=== PATIENT | female | born 1990 | race Caucasian/White ===

== ENCOUNTER → 2016-05-20 | Outpatient (CLI) | payer BC ==
[~2016-05-20] MED LIST: PRENTAB26 PO
[2016-05-20 16:47] LABS: HEMATOCRIT 39.8 % (37-47); MEAN CELL VOLUME 84.3 fL (80-100); MEAN CORPUSCULAR HEMOGLOBIN 27.8 pg (25-34); MEAN CORPUSCULAR HGB CONC 32.9 g/dl (32-36); MEAN PLATELET VOLUME 9.3 fL (7.4-10.4); PLATELET COUNT 220 K/uL (130-400); RED BLOOD COUNT 4.72 M/uL (4.2-5.4); WHITE BLOOD COUNT 7.98 K/uL (4.8-10.8)
== END | disposition home or self-care (01) ==
LOC: C.LAB1850 15:32
PROVIDERS: ATTEND Obstetrics & Gynecology
DX: R53.83 Other fatigue (principal); Z01.419 Encounter for gynecological examination (general) (routine) without abnormal findings

== ENCOUNTER → 2016-05-20 | Outpatient (CLI) | payer BC | END | disposition home or self-care (01) | LOC: C.PAPS 08:11 | PROVIDERS: ATTEND Obstetrics & Gynecology | DX: Z01.419 Encounter for gynecological examination (general) (routine) without abnormal findings (principal) ==

== ENCOUNTER → 2017-02-19 | Outpatient (CLI) | payer BC ==
[2017-02-19 14:49] LABS: BASO % 0.2 %; BASO ABS # 0.02 K/uL (0-0.2); COMPLETE YES; EOS % 2.3 %; HEMATOCRIT 35.3 % (37-47); IG% 0.2 %; LYMPH % 21.1 %; LYMPH ABS # 2.34 K/uL (1.2-3.4); MEAN CELL VOLUME 84.2 fL (80-100); MEAN CORPUSCULAR HEMOGLOBIN 28.4 pg (25-34); MEAN CORPUSCULAR HGB CONC 33.7 g/dl (32-36); MEAN PLATELET VOLUME 9.9 fL (7.4-10.4); MONO % 6.1 %; NEUT % 70.1 %; PLATELET COUNT 215 K/uL (130-400); RED BLOOD COUNT 4.19 M/uL (4.2-5.4); WHITE BLOOD COUNT 11.07 K/uL (4.8-10.8)
[2017-02-19 16:43] LABS: URINE APPEARANCE CLEAR (CLEAR); URINE BILIRUBIN NEG (NEG); URINE COLOR YELLOW; URINE EPITHELIAL CELL AUTO >30 /lpf (0-5); URINE NITRITE NEG (NEG); URINE SPECIFIC GRAVITY 1.028 (1.000-1.030); UROBILINOGEN NEG (NEG)
[2017-02-19 16:44] LABS: MANUAL MICROSCOPIC REQUIRED? NO; REVIEW REQ? YES
[2017-02-22 01:49] LABS: CHLAMYDIA TRACH RNA*** NOT DETECTED (NOT DETECTED); GC (NEIS GONORRHOEAE)RNA** NOT DETECTED (NOT DETECTED)
== END | disposition home or self-care (01) ==
LOC: C.LAB1850 12:35
PROVIDERS: ATTEND Obstetrics & Gynecology
DX: Z31.81 Encounter for male factor infertility in female patient (principal)

== ENCOUNTER → 2017-03-20 | Outpatient (CLI) | payer BC | END | disposition home or self-care (01) | LOC: C.LAB1850 11:07 | PROVIDERS: ATTEND Obstetrics & Gynecology | DX: Z34.82 Encounter for supervision of other normal pregnancy, second trimester (principal) ==

== ENCOUNTER → 2017-05-19 | Outpatient (CLI) | payer BC ==
[2017-05-19 12:17] LABS: HEMATOCRIT 31.1 % (37-47); HEMOGLOBIN 10.5 g/dL (12.0-16.0)
== END | disposition home or self-care (01) ==
LOC: C.LAB1850 10:51
PROVIDERS: ATTEND Obstetrics & Gynecology
DX: Z34.83 Encounter for supervision of other normal pregnancy, third trimester (principal)

== ENCOUNTER → 2017-06-02 | Outpatient (CLI) | payer BC | END | disposition home or self-care (01) | LOC: C.LAB1850 11:13 | PROVIDERS: ATTEND Obstetrics & Gynecology | DX: Z34.83 Encounter for supervision of other normal pregnancy, third trimester (principal); Z29.13 Encounter for prophylactic Rho(D) immune globulin ==

== ENCOUNTER → 2017-07-21 | Outpatient (CLI) | payer BC | END | disposition home or self-care (01) | LOC: C.LABSPEC 12:27 | PROVIDERS: ATTEND Obstetrics & Gynecology | DX: Z34.83 Encounter for supervision of other normal pregnancy, third trimester (principal) ==

== ENCOUNTER 2023-02-01 02:23 | Inpatient (IN) ==
[2023-02-01] MEDS ORDERED: LACTATED RINGER'S 1,000 ML IV PRN (02:33)
[2023-02-01] MEDS ORDERED: PENICILLIN GK 6 MU in DEXTROSE 5% 250 ML IV STA (02:33)
[2023-02-01] MEDS ORDERED: OXYTOCIN 30 UNITS/NSS 30 UNITS/500 ML BAG IV PRN ×2 (02:33→03:07)
[2023-02-01] MEDS ORDERED: LIDOCAINE 1% LOCAL 20 ML VIAL INFIL PRN (02:33)
--- NOTE | 2023-02-01 02:58 | History & Physical Report ---
Date of Service February 01, 2023 Assessment & Plan (1) GBS (group B Streptococcus carrier), +RV culture, currently : (2) Normal labor: Plan admit for labor . anticipate rapid delivery Admission and Anticipated Discharge Date Admission Date: February 01, 2023 History of Present Illness Chief Complaint: rom and contractions Primary Care Provider: NO PCP Patient is a 32yowf with iup at 38 5/7 who comes in very uncomfortable and screaming. She called noting contractions irregularly yesterday and was able to got to bed. Woke up, went to the BR and then heard pop and clear fluid with some blood tinge. and Delivery Plans Need for rhogam due to RH neg mother -Rhogam given 11/25/2022 - SP GBS carrier- treat in labor OB Labs: Blood Type A Negative 08/09/22 Antibody Screen NEGATIVE 11/25/22 Hemoglobin 10.8 g/dl (12.0-16.0) L 11/19/22 Hematocrit 32.5 % (37.0-47.0) L 11/19/22 Mean Corpuscular Volume 81.5 fL (80.0-100.0) 08/09/22 Platelet Count 254 K/uL (130-400) 08/09/22 Rubella IgG Antibody Immune (Immune) 08/09/22 Rapid Plasma Reagin Nonreactive (Nonreactive) 08/09/22 Hepatitis B Surface Antigen NEG (NEG) 02/19/17 Hepatitis B Surface Antigen. NON-REACTIVE (NON-REACTIVE) 08/09/22 Hepatitis C Antibody (EIA) NON-REACTIVE (NON-REACTIVE) 08/09/22 HIV (1&2) Ab and P24 Ag, 4th Gener NEG (NEG) 02/19/17 HIV (1&2) Ag and Ab Confirmation NON-REACTIVE (NON-REACTIVE) 08/09/22 OB Optional Labs: Chlamydia trachomatis RNA Not Detected (NotDetected) 08/09/22 Neisseria gonorrhoeae RNA Not Detected (NotDetected) 08/09/22 Allergies Allergy/AdvReac Type Severity Reaction Status Date / Time No Known Allergies Allergy Verified 01/27/23 15:06 Home Medications Medication Instructions Recorded Confirmed Type prenat.vits,brii,lnu-atdg-jzjog 1 tab PO DAILY 07/30/22 01/27/23 History breast pump #1 ea 11/25/22 01/27/23 Rx Patient History Medical History Chicken pox Anemia Surgical History S/P wisdom tooth extraction Family History Mother Breast cancer diagnosed around 45 Denies family history of Ovarian cancer Colorectal cancer Social History Smoking Status: Never smoker Do You Dip or Chew Tobacco: No; marital status: marital status details: Alan Chavezmathewernesto (34) [phone] Current Living Situation: Spouse and Family Current Living Situation Comment: , 2 kids, one cat, one dog ( litter changing) current occupational status: unemployed 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 Date GA wks Lbr Lgth wt Sex Type del Anes Place Del Prov ? Comment 05/26/15 37 6lbs 10oz F Loc [facility] Dr. López 08/09/17 39 7lbs F Local [facility] Dr. Watts [employer] History noncontributory Physical Exam Physical Exam: writhing in bed cx--c/c/+2 toco--q1-2min efm--120s Results & Data Vital Signs (Past 12 Hours) Vital Signs Pulse BP 02/01/23 02:56 83 114/67 Coding Level of Care Code None Diagnoses GBS (group B Streptococcus carrier), +RV culture, currently O99.820 Normal labor O80; Z37.9
--- NOTE | 2023-02-01 03:02 | Delivery Summary ---
Vaginal Delivery Summary Date of Service February 01, 2023 Vaginal Delivery Summary [facility] Pre-operative Diagnosis: at 38 weeks srom with active labor Post-operative Diagnosis: same Procedure: EBL: 300cc Anesthesia: none Procedure: The patient pushed for one contraction to deliver a viable female in mary lou position. The nose and mouth were bulb suctioned on the perineum and the rest of the was then delivered without difficulty. The baby was vigorous. The nose and mouth were again bulb suctioned and the infant was placed in the maternal abdomen for drying and attention. Cord was clamped and cut at one minute of life. Cord blood and segment obtained. Placenta delivered spontaneous, intact with a three vessel cord. Cervix/sulci/rectum/perineum were intact. Hemostasis obtained with dilute pitocin and fundal massage. Apgars were 9/9. Mother and baby doing well at the end of the delivery. [facility] Vaginal Delivery Charge Delivery Type Details: [facility]
[2023-02-01] MEDS ORDERED: ACETAMINOPHEN 325 MG TAB PO PRN (03:07)
[2023-02-01] MEDS ORDERED: BENZOCAINE 20% SPRY 85 APPLN/85 GM CAN EXT PRN (03:07)
[2023-02-01] MEDS ORDERED: IBUPROFEN 600 MG TAB PO PRN (03:07)
[2023-02-01] MEDS ORDERED: DIPHTHERIA/TETANUS/PERTUSSIS Vaccine (Tdap, Age 7+yrs) 0.5mL SYR/VL IM ONE (03:07)
[2023-02-01] MEDS ORDERED: oxyCODONE/ACETAMINOPHEN 5mg/325mg TAB PO PRN (03:07)
[2023-02-01] MEDS ORDERED: bisacodyL 10 MG SUPP PR PRN (03:07)
[2023-02-01] MEDS ORDERED: HYDROCORTISONE ACETATE 25 MG SUPP PR PRN (03:07)
[2023-02-01 03:53] LABS: Hematocrit (blood only) 32.5 % (37.0-47.0); Hemoglobin 10.9 g/dl (12.0-16.0); Mean Corpuscular Hemoglobin 28.8 pg (25.0-34.0); Mean Corpuscular Hgb Conc 33.5 g/dL (32.0-36.0); Mean Corpuscular Volume 85.8 fL (80.0-100.0); Mean Platelet Volume 9.7 fL (9.4-12.4); Platelet Count 188 K/uL (130-400); RDW Coefficient of Variation 13.1 % (11.5-14.5); RDW Standard Deviation 40.5 fL (36.4-46.3); Red Blood Count 3.79 M/uL (4.20-5.40); White Blood Count 11.66 K/ul (4.8-10.8)
[2023-02-01] MEDS ORDERED: PENICILLIN GK 3 MU in DEXTROSE 5% 100 ML IV PRN (05:33)
[2023-02-01] MEDS: PRENATAL VITAMIN 1 TAB PO SCH (10:02)
[2023-02-01] MEDS: DOCUSATE SODIUM 100 MG CAP PO SCH ×2 (10:02→21:15)
--- NOTE | 2023-02-02 07:39 | Obstetrical Progress Note ---
Date of Service February 02, 2023 Assessment & Plan (1) Normal labor: ppd 2 no ext pain, home Subjective Ambulation: ambulating normally Voiding: no voiding problems Passing Gas:: Yes Diet Tolerance:: regular diet Lochia:: Small Physical Exam Constitutional WD/WN, vitals as above well developed and well nourished Respiratory normal respiratory effort, lungs clear to auscultation normal respiratory effort Cardiovascular RRR, no murmur, no edema Gastrointestinal (Abdomen) normal bowel sounds, soft, nontender, no hepatosplenomegaly Results & Data Vital Signs (Past 12 Hours) Vital Signs Temp Pulse Resp BP O2 Del Method 02/02/23 00:17 98.1 F 70 16 104/61 Room Air
[2023-02-02] MEDS: DOCUSATE SODIUM 100 MG CAP PO SCH (09:24)
[2023-02-02] MEDS: PRENATAL VITAMIN 1 TAB PO SCH (09:24)
[2023-02-02] MEDS ORDERED: bisacodyL 5 MG TABEC PO SCH (20:00)
== END 2023-02-02 10:30 | disposition home or self-care (01) | DRG 807 ==
LOC: OPB 02:23 → 4S1 02:25 → 4E2 05:35